=== PATIENT | male | born 1950 | race Caucasian/White ===

== ENCOUNTER 2020-07-13 20:11 | Emergency (ER) | payer SELFPAY ==
[~2020-07-13] VITALS: Ht 170.2 cm; Wt 83.9 kg
[2020-07-13 20:13] VITALS: Ht 170.2 cm; Wt 83.9 kg
[2020-07-13 21:00] LABS: microscopic required? NO
[2020-07-13 21:15] LABS: BASOPHIL % 0.1 % (0.2-1.5); PLATELET COUNT 197 x10^3mcL (152-348); RED CELL DISTRIBUTION WIDTH 13.2 % (12.1-16.2)
[2020-07-13 21:26] LABS: urine erythrocyte NEGATIVE (NEGATIVE)
[2020-07-13 21:44] LABS: CALCIUM 8.6 mg/dL (8.5-10.1); CARBON DIOXIDE 26.6 mmol/L (21-32); CHLORIDE SERUM 97 mmol/L (98-107); CREATININE SERUM 1.1 mg/dL (0.7-1.3); GLUCOSE SERUM 102 mg/dL (74-106); POTASSIUM SERUM 3.5 mmol/L (3.5-5.1); SODIUM SERUM 135 mmol/L (136-145)
[2020-07-13 21:51] LABS: ALBUMIN 4.1 g/dL (3.4-5.0); ALKALINE PHOSPHATASE 80 U/L (46-116); ALT/SGPT 52 U/L (16-63); AST/SGOT 42 U/L (15-37); BILIRUBIN TOTAL 1.7 mg/dL (0.20-1.00); HDL CHOLESTEROL 37 mg/dL (40-60)
[2020-07-13 22:04] LABS: CHOLESTEROL 120 mg/dL (<200); TOTAL PROTEIN, SERUM 8.6 g/dL (6.4-8.2)
[2020-07-13 22:56] VITALS: BP 132/71
== END 2020-07-13 22:56 | disposition home or self-care (01) ==
LOC: ED 20:11
PROVIDERS: Emergency Medicine
DX: R07.89 Other chest pain (principal); R05 Cough; Z20.828 Contact with and (suspected) exposure to other viral communicable diseases
CPT/HCPCS: 85378; 87804